=== PATIENT | female | born 2000 | race Caucasian/White ===

== ENCOUNTER → 2024-05-16 | Outpatient (CLI) | payer BC, SELFPAY ==
--- NOTE | 2024-05-16 10:09 | XR_ITS ---
Examination: Knee bilateral, 7 views Technique: AP oblique lateral each knee total 6 views, bilateral axial knees single view total 7 views Exam date and time: June 02, 2024 1108 hours INDICATIONS: Sharp stabbing pain in the knees beginning 2 weeks ago FINDINGS: Normal bone density No fracture or dislocation involving either knee No significant joint narrowing No ossified joint bodies are opaque foreign bodies IMPRESSION: No fracture or dislocation involving either knee No erosive or other significant arthritic change involving either knee
[2024-05-16 11:58] LABS: Sed Rate (ESR) 5 mm/hr (0-20)
[2024-05-16 12:12] LABS: C-Reactive Protein 1.3 mg/dL (0.0-0.9); Ferritin 28 ng/mL (7.3-270.7)
[2024-05-16 16:21] LABS: RA Screen Negative (Negative)
[2024-05-30 06:14] LABS: ANA Screen, IFA NEGATIVE (NEGATIVE); Rheumatoid Factor* <10 IU/mL (<14)
== END | disposition home or self-care (01) ==
LOC: CDIM 09:49 → COPL 10:45
PROVIDERS: PCP Family Medicine; Referring Provider Nurse Practitioner Family; Visit Provider Radiology Diagnostic Radiology
DX: M25.561 Pain in right knee (principal); M25.562 Pain in left knee; D89.9 Disorder involving the immune mechanism, unspecified
CPT/HCPCS: 36415; 73564; 82728; 85652; 86038; 86140; 86430; 86431

== ENCOUNTER → 2024-05-23 | Outpatient (CLI) | payer BC, SELFPAY ==
[2024-05-25 16:53] LABS: RA Screen Negative (Negative)
[2024-06-01 19:49] LABS: Sjogren's antibody (SS-A) <1.0 NEG AI (<1.0 NEGATIVE); Sm Antibody <1.0 NEG AI (<1.0 NEGATIVE)
[2024-06-02 06:28] LABS: ANA Screen, IFA NEGATIVE (NEGATIVE); Actin Antibody (IgG)* <20 U; Complement Component C3* 179 mg/dL (83-193); Complement Component C4c* 30 mg/dL (15-57); DNA (ds) Antibody* 4 IU/mL; Gastric Parietal Cell Ab* <20.0 U; Mitochondrial Ab NEGATIVE (NEGATIVE); Myocardial Ab, IF NEGATIVE (NEGATIVE); Scl-70 Antibody* <1.0 NEG AI (<1.0 NEGATIVE); Sjogren's Antibody (SS-B) <1.0 NEG AI (<1.0 NEGATIVE); Sm/RNP Antibody <1.0 NEG AI (<1.0 NEGATIVE); Striated Muscle Ab NEGATIVE (NEGATIVE); Thyroid Peroxidase Antibodies* 1 IU/mL (<9)
== END | disposition home or self-care (01) ==
LOC: COPL 14:52
PROVIDERS: PCP Family Medicine; Referring Provider Nurse Practitioner Family; Visit Provider Nurse Practitioner Family
DX: M32.9 Systemic lupus erythematosus, unspecified (principal)
CPT/HCPCS: 36415; 83516; 86015; 86038; 86160; 86225; 86235; 86255; 86376; 86430

== ENCOUNTER → 2024-07-22 | Outpatient (CLI) | payer BC, SELFPAY ==
[2024-07-22 14:31] LABS: Misc Send Out* See Sep Rpt
[2024-07-22 15:42] LABS: Basophils # (Auto) 0.1 Thou/mm3 (0.0-0.2); Basophils % (Auto) 1 % (0-2.5); Eosinophils # (Auto) 0.1 Thou/mm3 (0.0-0.5); Eosinophils % (Auto) 1 % (0-10); Hematocrit 36.8 % (36.0-46.0); Hemoglobin 11.8 g/dL (12.0-16.0); Immature Granulocytes % (Auto) 0 % (0-0); Immature Granulocytes Auto 0.01 Thou/mm3 (0.00-0.00); Lymphocytes # (Auto) 1.9 Thou/mm3 (1.0-4.8); Lymphocytes % (Auto) 27 % (10-50); Mean Corpuscular HGB Conc 32.1 g/dl (31.0-37.0); Mean Corpuscular Hemoglobin 24.7 pg (25.0-35.0); Mean Corpuscular Volume 77 fL (80-100); Monocytes # (Auto) 0.7 Thou/mm3 (0.0-0.8); Monocytes % (Auto) 10 % (0-12); Neutrophils # (Auto) 4.4 Thou/mm3 (1.8-7.7); Neutrophils % (Auto) 62 % (37-80); Nucleated Red Blood Cell % 0 /100 WBC (0); Platelet Count 361 Thou/mm3 (140-440); RDW Standard Deviation 35.5 fL (36.4-46.3); Red Blood Count 4.77 Miln/mm3 (4.00-5.20); White Blood Count 7.2 Thou/mm3 (3.6-11.0)
[2024-07-22 16:04] LABS: Alanine Aminotransferase 13 U/L (10-49); Albumin, Serum 4.5 gm/dL (3.5-5.0); Albumin/Globulin Ratio 1.5 (1.2-2.2); Alkaline Phosphatase 83 U/L (46-116); Anion Gap 9 (7-16); Aspartate Amino Transferase < 10 U/L (0-34); BUN/Creatinine Ratio 17 Ratio (12-20); Bilirubin,Total 1.4 mg/dL (0.3-1.2); Blood Urea Nitrogen 12 mg/dL (9-23); C-Reactive Protein < 0.4 mg/dL (0.0-0.9); Calcium 9.8 mg/dL (8.3-10.6); Calcium (Corrected) 9.8 mg/dL (8.5-10.1); Carbon Dioxide 25.6 mMol/L (20.0-31.0); Chloride 104 mMol/L (98-107); Creatinine (Component) 0.7 mg/dL (0.6-1.3); Free T4 (Free Thyroxine) 1.22 ng/dL (0.89-1.76); Glucose 80 mg/dL (74-106); Osmolality,Calculated 276 (275-295); Potassium 3.7 mMol/L (3.4-5.1); Sodium 139 mMol/L (136-145); Thyroid Stimulating Hormone 0.78 uIU/mL (0.55-4.78); Total Protein 7.5 gm/dL (5.7-8.2); eGFR > 60 See Note
[2024-07-22 16:22] LABS: Syphilis Nonreactive (Nonreactive)
[2024-07-22 16:32] LABS: Folate 8.95 ng/mL (>5.38); Hepatitis A Antibody IgM Non Reactive (Non React); Hepatitis B Core Antibody IgM Non Reactive (Non React); Hepatitis B Surface Antigen Non Reactive (Non React); Hepatitis C Antibody Non Reactive (Non React); Vitamin B12 637 pg/mL (211-911)
[2024-07-22 17:14] LABS: Sed Rate (ESR) 13 mm/hr (0-20)
[2024-07-23 09:41] LABS: Chlamydia trachomatis PCR Negative (Not Detect); Neisseria Gonorrhoeae DNA PCR Negative (Not Detect); Trichomonas Negative (Negative)
[2024-07-23 12:53] LABS: Cocci Serology, IgM Positive (Negative)
[2024-07-23 12:54] LABS: Cocid Sro, CF/ID (UCD) NO CHG* See Sep Rpt
[2024-07-30 13:52] LABS: EBV EBNA Ab (IgG) >600.00 U/mL; EBV VCA Ab (IgM) <36.00 U/mL
[2024-07-31 06:40] LABS: CCP Antibody (IgG)* <16 Units; Complement Component C3* 159 mg/dL (83-193); Complement Component C4c* 30 mg/dL (15-57); EBV Ab Interpretation PAST; HLA-B27 Antigen* POSITIVE (NEGATIVE)
[2024-07-31 06:46] LABS: ANCA Screen NEGATIVE (NEGATIVE); HIV Ag/Ab, 4th Gen NON-REACTIVE
[2024-07-31 06:48] LABS: Myeloperoxidase Ab <1.0 AI (<1.0); Proteinase-3 Ab <1.0 AI (<1.0)
== END | disposition home or self-care (01) ==
LOC: COPL 13:59
PROVIDERS: PCP Family Medicine; Referring Provider Internal Medicine; Visit Provider Internal Medicine
DX: M19.90 Unspecified osteoarthritis, unspecified site (principal); M25.60 Stiffness of unspecified joint, not elsewhere classified; R21 Rash and other nonspecific skin eruption; R53.83 Other fatigue; R79.82 Elevated C-reactive protein (CRP); Z11.1 Encounter for screening for respiratory tuberculosis; Z11.59 Encounter for screening for other viral diseases
CPT/HCPCS: 36415; 80053; 80074; 82607; 82746; 83529; 84439; 84443; 85025; 85652; 86021; 86036; 86140; 86160; 86162; 86200; 86635; 86664; 86665; 86780; 86812; 87389; 87491; 87591; 87661

== ENCOUNTER → 2024-07-23 | Outpatient (CLI) | payer BC, SELFPAY ==
[2024-07-23 08:43] LABS: Quantiferon-TB* See Sep Rpt
== END | disposition home or self-care (01) ==
LOC: COPL 08:24
PROVIDERS: PCP Family Medicine; Referring Provider Internal Medicine; Visit Provider Internal Medicine
DX: M19.90 Unspecified osteoarthritis, unspecified site (principal); M25.60 Stiffness of unspecified joint, not elsewhere classified; R21 Rash and other nonspecific skin eruption; R53.83 Other fatigue; R79.82 Elevated C-reactive protein (CRP); Z11.1 Encounter for screening for respiratory tuberculosis; Z11.59 Encounter for screening for other viral diseases
CPT/HCPCS: 86480

== ENCOUNTER → 2024-08-27 | Outpatient (CLI) | payer BC, SELFPAY ==
[2024-08-27 13:32] LABS: Coccid Serology, CF (UCD)* See Sep Rpt
[2024-08-27 14:24] LABS: Basophils # (Auto) 0.1 Thou/mm3 (0.0-0.2); Basophils % (Auto) 1 % (0-2.5); Eosinophils # (Auto) 0.1 Thou/mm3 (0.0-0.5); Eosinophils % (Auto) 1 % (0-10); Hematocrit 36.9 % (36.0-46.0); Hemoglobin 11.6 g/dL (12.0-16.0); Immature Granulocytes % (Auto) 0 % (0-0); Immature Granulocytes Auto 0.01 Thou/mm3 (0.00-0.00); Lymphocytes # (Auto) 2.2 Thou/mm3 (1.0-4.8); Lymphocytes % (Auto) 31 % (10-50); Mean Corpuscular HGB Conc 31.4 g/dl (31.0-37.0); Mean Corpuscular Hemoglobin 24.8 pg (25.0-35.0); Mean Corpuscular Volume 79 fL (80-100); Monocytes # (Auto) 0.8 Thou/mm3 (0.0-0.8); Monocytes % (Auto) 11 % (0-12); Neutrophils # (Auto) 3.8 Thou/mm3 (1.8-7.7); Neutrophils % (Auto) 56 % (37-80); Nucleated Red Blood Cell % 0 /100 WBC (0); Platelet Count 354 Thou/mm3 (140-440); Red Blood Count 4.68 Miln/mm3 (4.00-5.20); White Blood Count 6.9 Thou/mm3 (3.6-11.0)
--- NOTE | 2024-08-27 14:28 | XR_ITS ---
Examination: Thoracic spine 3 views Technique one AP lateral coned lateral upper dorsal spine 3 views Exam date and time: August 27, 2024 1504 hours INDICATIONS: Back pain 10 years. FINDINGS: Lower thoracic dextroscoliosis 8 degrees Upper thoracic levoscoliosis 5 degrees No thoracic fracture No thoracic disc narrowing IMPRESSION: Scoliosis as above
--- NOTE | 2024-08-27 14:28 | XR_ITS ---
Examination: Lumbar spine, 5 views Technique: Lumbar spine AP, lateral, coned lateral lower lumbar spine, bilateral obliques 5 views Exam date and time: August 27, 2024 1450 hours INDICATIONS: Back pain 10 years. FINDINGS: Lumbar levoscoliosis 12 degrees No lumbar fracture Minimal disc narrowing posteriorly L5-S1 No spondylolisthesis IMPRESSION: Lumbar levoscoliosis 12 degrees Minimal disc narrowing posteriorly L5-S1
--- NOTE | 2024-08-27 14:28 | XR_ITS ---
EXAMINATION: Cervical spine, 5 views Technique: Cervical spine AP, AP odontoid, lateral, bilateral obliques, 5 views Exam date and time: August 27, 2024 1450 hours INDICATIONS: Neck pain 10 years. FINDINGS: Straightening normal cervical lordosis No cervical fracture No neural foraminal stenosis or significant cervical disc narrowing IMPRESSION: No cervical fracture No arthritic change noted
[2024-08-27 14:36] LABS: Sed Rate (ESR) 2 mm/hr (0-20)
[2024-08-27 14:43] LABS: Alanine Aminotransferase 18 U/L (10-49); Albumin, Serum 4.4 gm/dL (3.5-5.0); Albumin/Globulin Ratio 1.6 (1.2-2.2); Alkaline Phosphatase 66 U/L (46-116); Anion Gap 7 (7-16); Aspartate Amino Transferase 17 U/L (0-34); BUN/Creatinine Ratio 23 Ratio (12-20); Bilirubin,Total 0.9 mg/dL (0.3-1.2); Blood Urea Nitrogen 14 mg/dL (9-23); C-Reactive Protein < 0.5 mg/dL (0.0-0.9); Calcium 9.4 mg/dL (8.3-10.6); Calcium (Corrected) 9.4 mg/dL (8.5-10.1); Chloride 105 mMol/L (98-107); Creatinine (Component) 0.6 mg/dL (0.6-1.3); Globulin 2.8 gm/dL (2.3-3.5); Glucose 85 mg/dL (74-106); Osmolality,Calculated 277 (275-295); Potassium 4.4 mMol/L (3.4-5.1); Sodium 139 mMol/L (136-145); Total Protein 7.2 gm/dL (5.7-8.2); eGFR > 60 See Note
== END | disposition home or self-care (01) ==
PROVIDERS: PCP Family Medicine; Referring Provider Internal Medicine; Visit Provider Internal Medicine
DX: Z15.89 Genetic susceptibility to other disease (principal); Z11.1 Encounter for screening for respiratory tuberculosis; Z11.59 Encounter for screening for other viral diseases; M41.86 Other forms of scoliosis, lumbar region; M48.8X7 Other specified spondylopathies, lumbosacral region; B38.9 Coccidioidomycosis, unspecified; M19.90 Unspecified osteoarthritis, unspecified site; M25.60 Stiffness of unspecified joint, not elsewhere classified; R21 Rash and other nonspecific skin eruption; R53.83 Other fatigue; R79.82 Elevated C-reactive protein (CRP)
CPT/HCPCS: 36415; 72050; 72072; 72110; 80053; 85025; 85652; 86140; 86171

== ENCOUNTER → 2025-03-17 | Outpatient (CLI) | payer BC, SELFPAY ==
[2025-03-17 17:38] LABS: Basophils # (Auto) 0.1 Thou/mm3 (0.0-0.2); Basophils % (Auto) 1 % (0-2.5); Eosinophils # (Auto) 0.0 Thou/mm3 (0.0-0.5); Eosinophils % (Auto) 1 % (0-10); Hematocrit 35.8 % (36.0-46.0); Hemoglobin 11.6 g/dL (12.0-16.0); Immature Granulocytes Auto 0.02 Thou/mm3 (0.00-0.00); Lymphocytes # (Auto) 2.2 Thou/mm3 (1.0-4.8); Lymphocytes % (Auto) 28 % (10-50); Mean Corpuscular HGB Conc 32.4 g/dl (31.0-37.0); Mean Corpuscular Hemoglobin 26.1 pg (25.0-35.0); Mean Corpuscular Volume 80 fL (80-100); Monocytes # (Auto) 1.0 Thou/mm3 (0.0-0.8); Monocytes % (Auto) 12 % (0-12); Neutrophils # (Auto) 4.8 Thou/mm3 (1.8-7.7); Neutrophils % (Auto) 59 % (37-80); Nucleated Red Blood Cell # 0.00 Thou/mm3 (0.00-0.00); Nucleated Red Blood Cell % 0 /100 WBC (0); Platelet Count 337 Thou/mm3 (140-440); RDW Standard Deviation 35.8 fL (36.4-46.3); Red Blood Count 4.45 Miln/mm3 (4.00-5.20); White Blood Count 8.1 Thou/mm3 (3.6-11.0)
[2025-03-17 18:00] LABS: Alanine Aminotransferase 12 U/L (10-49); Albumin, Serum 4.6 gm/dL (3.5-5.0); Albumin/Globulin Ratio 1.7 (1.2-2.2); Alkaline Phosphatase 64 U/L (46-116); Anion Gap 9 (7-16); Aspartate Amino Transferase 19 U/L (0-34); BUN/Creatinine Ratio 11 Ratio (12-20); Bilirubin,Total 0.9 mg/dL (0.3-1.2); Blood Urea Nitrogen 8 mg/dL (9-23); C-Reactive Protein < 0.5 mg/dL (0.0-0.9); Calcium 9.9 mg/dL (8.3-10.6); Calcium (Corrected) 9.9 mg/dL (8.5-10.1); Carbon Dioxide 27.5 mMol/L (20.0-31.0); Chloride 105 mMol/L (98-107); Creatinine (Component) 0.7 mg/dL (0.6-1.3); Globulin 2.7 gm/dL (2.3-3.5); Glucose 95 mg/dL (74-106); Osmolality,Calculated 279 (275-295); Potassium 4.2 mMol/L (3.4-5.1); Sodium 141 mMol/L (136-145); Total Protein 7.3 gm/dL (5.7-8.2); eGFR > 60 See Note
[2025-03-17 18:18] LABS: Sed Rate (ESR) 2 mm/hr (0-20)
== END | disposition home or self-care (01) ==
LOC: COPL 16:47
PROVIDERS: PCP Family Medicine; Referring Provider Internal Medicine; Visit Provider Internal Medicine
DX: B38.9 Coccidioidomycosis, unspecified (principal); M19.90 Unspecified osteoarthritis, unspecified site; M25.60 Stiffness of unspecified joint, not elsewhere classified; R21 Rash and other nonspecific skin eruption; R53.83 Other fatigue; R79.82 Elevated C-reactive protein (CRP); Z11.1 Encounter for screening for respiratory tuberculosis; Z11.59 Encounter for screening for other viral diseases; Z15.89 Genetic susceptibility to other disease
CPT/HCPCS: 36415; 80053; 85025; 85652; 86140